=== PATIENT | female | born 1975 | race Caucasian/White ===

== ENCOUNTER 2017-08-04 22:54 | Emergency (ER) | payer BC ==
[~2017-08-04] VITALS: Ht 165.1 cm; Wt 64.4 kg
[~2017-08-04 22:54] MED LIST: HUMULIN 70/30 703 M1; HUMULIN R100 U/ML; ZOFRAN4 MG PO
[2017-08-04] MEDS ORDERED: NOVOLOG100 UNIT/1 SQ (22:59)
[2017-08-04] MEDS ORDERED: TRESIBA FL100 UNIT/1 SQ (22:59)
== END 2017-08-05 00:13 | disposition home or self-care (01) ==
LOC: ED 22:54
DX: R21 Rash and other nonspecific skin eruption (principal); E10.9 Type 1 diabetes mellitus without complications; Z98.890 Other specified postprocedural states; Z79.4 Long term (current) use of insulin; Z88.1 Allergy status to other antibiotic agents; Z88.8 Allergy status to other drugs, medicaments and biological substances